=== PATIENT | male | born 1995 | race American Indian/Alaskan Native ===

== ENCOUNTER 2020-02-02 03:07 | Emergency (ER) | payer SELFPAY ==
[2020-02-02 04:02] LABS: Bilirubin,Urine NEG (Negative); Blood,Urine MOD (Negative); Color,Urine Amber (Yellow); Mucus,Urine 3+ /HPF
[2020-02-02 04:23] LABS: Benzodiazepines Screen,Urine PRESUMPTIVE NEGATIVE; Cocaine Screen,Urine PRESUMPTIVE NEGATIVE; Methadone Screen,Urine PRESUMPTIVE NEGATIVE; Opiate Screen,Urine PRESUMPTIVE NEGATIVE
[2020-02-02 04:32] LABS: Basophils % (Auto) 0.2 % (0.0-1.8); Eosinophils # (Auto) 0.1 K/mm3 (0.0-0.4); Eosinophils % (Auto) 2.2 % (0.0-4.3); Hemoglobin 14.3 gm/dl (11.8-15.2); Lymphocytes # (Auto) 0.8 K/mm3 (1.2-5.4); Lymphocytes % (Auto) 12.4 % (13.4-35.0); Mean Corpuscular HGB Conc 35 % (32-34); Mean Corpuscular Volume 85 fl (84-94); Monocytes # (Auto) 0.7 K/mm3 (0.0-0.8); Monocytes % (Auto) 10.1 % (0.0-7.3); Platelet Count 111 K/mm3 (140-440); Red Cell Distribution Width 14.8 % (13.2-15.2)
[2020-02-02 04:39] LABS: BUN/Creatinine Ratio 18; Blood Urea Nitrogen 20 mg/dL (9-20); Calcium 9.1 mg/dL (8.4-10.2); Hemolysis Index 9
[2020-02-02 04:41] LABS: Amphetamine Screen,Urine PRESUMPTIVE POSITIVE; Cannabinoid Screen,Urine PRESUMPTIVE POSITIVE
--- NOTE | 2020-02-02 05:31 | Emergency Department Report ---
ED Psych HPI - General Chief Complaint: Psych Stated Complaint: SI/HOMICIAL THOUGHTS Time Seen by Provider: 02/02/20 03:48 Source: patient, EMS Mode of arrival: Stretcher - History of Present Illness Initial Comments: 24-year-old male with history of PTSD and bipolar disorder presents to ED for mental health evaluation. Patient reports visual hallucinations, states he is seeing people, out of the [place]. Patient also reports auditory hallucinations as well, telling him that everyone is out to get him, including his friends. Patient states this makes him feel homicidal when he is around others because the voices are telling him that other people trying to hurt him. Patient states this is making him feel suicidal, however he has no plan. Patient states he has been off of his psychiatric medications. MD Complaint: suicidal ideation -: unknown Associated Psychiatric Symptoms: suicidal ideation, homicidal ideation, auditory hallucinations, visual hallucinations Quality: constant Context: not taking psychiatric Associated Symptoms: denies other symptoms Treatments Prior to Arrival: none If Self Harm: admits thoughts of - Related Data Home Medications Medication Instructions Recorded Confirmed Last Taken FLUoxetine [PROzac] 20 mg PO QDAY 02/02/20 02/02/20 Unknown QUEtiapine [SEROquel] 100 mg PO DAILY 02/02/20 02/02/20 Unknown Allergies Allergy/AdvReac Type Severity Reaction Status Date / Time No Known Allergies Allergy Unverified 02/02/20 03:39 ED Review of Systems ROS: Stated complaint: SI/HOMICIAL THOUGHTS Other details as noted in HPI Comment: All other systems reviewed and negative Psychiatric: auditory hallucinations, visual hallucinations, homicidal thoughts, suicidal thoughts ED Past Medical Hx - Past Medical History Hx Psychiatric Treatment: Yes (PTSD, bipolar) - Surgical History Past Surgical History?: No - Social History Smoking Status: Never Smoker Substance Use Type: None - Medications Home Medications: Home Medications Medication Instructions Recorded Confirmed Last Taken Type FLUoxetine [PROzac] 20 mg PO QDAY 02/02/20 02/02/20 Unknown History QUEtiapine [SEROquel] 100 mg PO DAILY 02/02/20 02/02/20 Unknown History ED Physical Exam - General Limitations: No Limitations General appearance: alert, in no apparent distress - Head Head exam: Present: atraumatic, normocephalic - Eye Eye exam: Present: normal appearance - ENT ENT exam: Present: mucous membranes moist - Neck Neck exam: Present: normal inspection - Respiratory Respiratory exam: Present: normal lung sounds bilaterally. Absent: respiratory distress - Cardiovascular Cardiovascular Exam: Present: normal rhythm, tachycardia - GI/Abdominal GI/Abdominal exam: Absent: distended - Extremities Exam Extremities exam: Present: normal inspection - Neurological Exam Neurological exam: Present: alert, oriented X3 - Psychiatric Psychiatric exam: Present: anxious, homicidal ideation, suicidal ideation - Skin Skin exam: Present: warm, dry, intact, normal color, other (Evidence of healed scars consistent with previous episodes of cutting on upper extremities) ED Course Vital Signs 02/02/20 02/02/20 03:40 05:12 Temperature 98.0 F Pulse Rate 102 H Respiratory 18 18 Rate Blood Pressure 137/91 O2 Sat by Pulse 99 Oximetry ED Medical Decision Making - Lab Data Result diagrams: 02/02/20 03:57 02/02/20 03:57 - Medical Decision Making Drug screen positive for marijuana and amphetamines. Patient is medically clear for mental health evaluation. Critical care attestation.: If time is entered above; I have spent that time in minutes in the direct care of this critically ill patient, excluding procedure time. ED Disposition Clinical Impression: Amphetamine abuse, Psychosis Condition: Stable Referrals: PRIMARY CARE, [Primary Care Provider] - 3-5 Days
[2020-02-02] MEDS ORDERED: ZIPRASIDONE MESYLATE 20 MG VIAL IM ONE ×2 (17:38)
[2020-02-02] MEDS ORDERED: WATER FOR INJ Sterile (PF) 10 ML ONE (17:38)
[2020-02-03] MEDS ORDERED: LOPERAMIDE 2 MG CAP PO ONE ×2 (01:34→01:35)
[2020-02-03] MEDS ORDERED: LOPERAMIDE 2 MG CAP ONE (01:37)
[2020-02-03 09:08] VITALS: BP 122/85
== END 2020-02-03 10:08 ==
LOC: ED 03:07
DX: F31.9 Bipolar disorder, unspecified (principal); F29 Unspecified psychosis not due to a substance or known physiological condition; F43.10 Post-traumatic stress disorder, unspecified
CPT/HCPCS: 36415; 80048; 80307; 81001; 85025; 87086; 96372; 99285; J3486; 80320; G0480